=== PATIENT | male | born 1980 | race Caucasian/White ===

== ENCOUNTER 2018-12-25 10:32 | Emergency (ER) | payer SELFPAY ==
[~2018-12-25] VITALS: Ht 175.3 cm; Wt 77.6 kg
[~2018-12-25 10:32] MED LIST: IBUP-1542 PO; LORA-441 PO; ONDA4TAB14 PO
[2018-12-25 10:37] VITALS: BP 134/80; PULSE 102; RESP 18; Ht 175.3 cm; Wt 77.6 kg
[2018-12-25] MEDS ORDERED: LORAZEPAM 1 MG TAB PO ONE (12:30)
[2018-12-25] MEDS ORDERED: DEXAMETHASONE 10 MG/ML 1 ML INJ IM ONE (13:00)
== END 2018-12-25 13:41 | disposition home or self-care (01) ==
LOC: FTE 10:32
DX: F41.9 Anxiety disorder, unspecified (principal); F17.210 Nicotine dependence, cigarettes, uncomplicated; R07.89 Other chest pain
CPT/HCPCS: 87880; 93005; 96372; 99284; J1100